=== PATIENT | male | born 1960 | race Caucasian/White ===

== ENCOUNTER 2019-08-21 00:38 | Day surgery (SDC) | payer BC ==
[2019-08-21] MEDS ORDERED: FENO145 PO (08:51)
[2019-08-21] MEDS ORDERED: Aspirin EC81 MG PO (08:51)
[2019-08-21] MEDS ORDERED: METO25ER (08:51)
[2019-08-21] MEDS ORDERED: ASCO500 (08:52)
[2019-08-21] MEDS ORDERED: CETI5 PO (08:52)
[2019-08-21] MEDS ORDERED: METF500 PO (08:52)
[2019-08-21] MEDS ORDERED: FISH OIL 1,001000 MG PO (08:52)
[2019-08-21] MEDS ORDERED: FOLGARD TABLET1 EACH PO (08:53)
== END 2019-08-21 08:58 | disposition home or self-care (01) ==
LOC: ATC 00:38
DX: C73 Malignant neoplasm of thyroid gland (principal); I10 Essential (primary) hypertension; E11.9 Type 2 diabetes mellitus without complications; E78.5 Hyperlipidemia, unspecified; E66.9 Obesity, unspecified; E89.0 Postprocedural hypothyroidism; Z88.8 Allergy status to other drugs, medicaments and biological substances; Z91.013 Allergy to seafood; Z79.82 Long term (current) use of aspirin; Z79.84 Long term (current) use of oral hypoglycemic drugs; Z68.38 Body mass index [BMI] 38.0-38.9, adult
CPT/HCPCS: 96372; J3240

== ENCOUNTER 2019-08-22 00:30 | Day surgery (SDC) | payer BC ==
[~2019-08-22 00:30] MED LIST: ASCO500; Aspirin EC81 MG PO; CETI5 PO; FENO145 PO; FISH OIL 1,001000 MG PO; FOLGARD TABLET1 EACH PO; METF500 PO; METO25ER
--- NOTE | 2019-08-22 10:10 | NUR ---
PT REPORTS THIS IS 2ND PART OF HIS THYROGEN INJECTIONS. STATES HE HAS TESTING SET UP. REPORTS HE IS GOING TO [facility] FOR ONCOLOGIST "CANCER HAS SPREAD TO MY CHEST". PT LEFT IN STABLE CONDITION.
== END 2019-08-22 09:09 | disposition home or self-care (01) ==
LOC: ATC 00:30
DX: C73 Malignant neoplasm of thyroid gland (principal); I10 Essential (primary) hypertension; E11.9 Type 2 diabetes mellitus without complications; E78.5 Hyperlipidemia, unspecified; E89.0 Postprocedural hypothyroidism; E66.9 Obesity, unspecified; Z68.38 Body mass index [BMI] 38.0-38.9, adult; Z79.899 Other long term (current) drug therapy; Z88.8 Allergy status to other drugs, medicaments and biological substances; Z91.013 Allergy to seafood; Z79.82 Long term (current) use of aspirin; Z79.84 Long term (current) use of oral hypoglycemic drugs
CPT/HCPCS: 96372; J3240